=== PATIENT | female | born 1955 | race Caucasian/White ===

== ENCOUNTER 2017-12-02 13:05 | Outpatient (CLI) | payer BC, OTHER ==
--- NOTE | 2017-12-03 17:53 | MRI Report ---
Procedure Date: 12/02/2017 Accession Number: [id number] / [id number] Procedure: MRI - Knee LT W/O CPT Code: FULL RESULT: EXAM: LEFT KNEE MRI WITHOUT CONTRAST EXAM DATE: 12/02/2017 02:39 PM. CLINICAL HISTORY: Pain in left knee. COMPARISON: None. TECHNIQUE: Multiplanar, multisequence T1-weighted and fluid-sensitive sequences of the knee without contrast. Other: None. FINDINGS: Bones: 2.4 x 1.3 x 0.6 cm crescentic region of sclerosis at the anterior to central weight-bearing surface medial femoral condyle. Subtle flattening at the lateral aspect of the articular surface of this site. Small underlying cystic changes and moderate bone marrow edema. No fluid-filled cleft or free osteochondral fragment. Mild reactive edema posterior aspect medial tibial plateau and anteromedial aspect lateral tibial plateau adjacent to the tibial spines. Minimal reactive edema at the patella. Mild lateral patellar subluxation. Articular Cartilage: Diffuse deep-partial to full-thickness cartilage loss medial femoral condyle. Diffuse deep partial-thickness loss medial tibial plateau. Diffuse shallow partial-thickness loss lateral compartment. Moderate to large region of deep partial to full-thickness loss and fissuring/tearing medial patellar facet extending over the median ridge. Small focus deep-partial thickness loss medial trochlea. Medial Meniscus: Obliquely oriented radial tear extends through the substance of the posterior horn. The tear extends into the posterior root. Lateral Meniscus: Degenerative fraying at the free edges anterior and posterior horns. Cruciate Ligaments: Diffuse distortion anterior cruciate ligament. A few fibers may remain intact. Posterior cruciate ligament mildly thickened. Collateral Ligaments: The medial collateral and lateral collateral ligamentous structures are intact. Tendons: The quadriceps, patellar, semimembranosus, and popliteus tendons are unremarkable. Musculature: Mild fatty atrophy in the semimembranosus muscle. Mild to moderate fatty atrophy in the lateral head gastrocnemius muscle. Minimal edema in the vastus lateralis muscle. Other: Large joint effusion with synovitis. Moderate popliteal cyst with leak. No loose bodies. The medial and lateral retinacula are intact. Moderate subcutaneous edema anteriorly. Mild reactive edema in the anterior fat pads. IMPRESSION: 1. Subchondral fracture and osteochondral lesion medial femoral condyle with moderate bone marrow edema. No fluid-filled cleft or free ossific fragment. 2. Obliquely oriented radial tear posterior horn and root medial meniscus. 3. Degenerative fraying lateral meniscus. 4. High-grade partial versus complete disruption of the anterior cruciate ligament. 5. Mild thickening posterior cruciate ligament. 6. Large joint effusion with synovitis. 7. Moderate popliteal cyst with leak. 8. Tricompartmental cartilage loss, full-thickness/grade 4 at the medial femoral condyle and medial patella. RADIA MUSCULOSKELETAL RADIOLOGY SECTION
== END 2017-12-02 13:06 | disposition home or self-care (01) ==
LOC: DI 13:05
PROVIDERS: ATTEND Internal Medicine
DX: S72.432A Displaced fracture of medial condyle of left femur, initial encounter for closed fracture (principal); S83.242A Other tear of medial meniscus, current injury, left knee, initial encounter; M23.301 Other meniscus derangements, unspecified lateral meniscus, left knee; S83.512A Sprain of anterior cruciate ligament of left knee, initial encounter; M25.462 Effusion, left knee; M65.862 Other synovitis and tenosynovitis, left lower leg; M71.22 Synovial cyst of popliteal space [Baker], left knee; M23.92 Unspecified internal derangement of left knee

== ENCOUNTER 2019-05-03 09:11 | Outpatient (CLI) | payer BC, OTHER ==
--- NOTE | 2019-05-06 15:01 | Mammography Report ---
Reason: ROUTINE MAMMO Procedure Date: 05/03/2019 Accession Number: [id number] / [id number] Procedure: MGN - Screening Mammo Dig Bilat CPT Code: Final Report FULL RESULT: EXAM: Screening Mammo Dig Bilat with Reginald DATE: 05/03/2019 9:51 AM CLINICAL HISTORY: The patient is an asymptomatic 39-year-old female. Maternal history of breast cancer. Prior benign right breast needle biopsy. TECHNIQUE: (B) - Bilateral CC and MLO views were obtained. COMPARISON: 05/02/2017, 01/26/2016, 05/19/2014 and 05/17/2013 PARENCHYMAL PATTERN: (A) - The breasts demonstrate scattered fibroglandular densities bilaterally. FINDINGS: A microclip is in place in the right breast (site of benign needle biopsy). There are no developing suspicious masses, calcifications, or areas of distortion. IMPRESSION: Benign findings. BI-RADS category 2. RECOMMENDATION: (ANNUAL) - Recommend routine annual screening mammography. BI-RADS CATEGORY: (2) - Benign Findings. STANDARD QUALIFYING STATEMENTS: 1. This examination was not reviewed with the aid of Computer-Aided Detection (CAD). 2. A negative or benign imaging report should not preclude biopsy if clinically suspicious findings are present. 3. Dense breasts may obscure an underlying neoplasm. 4. This examination was reviewed with the aid of 3D breast imaging (tomosynthesis).
== END 2019-05-03 09:12 | disposition home or self-care (01) ==
LOC: DI.N 09:11
PROVIDERS: ATTEND Registered Nurse
DX: Z12.31 Encounter for screening mammogram for malignant neoplasm of breast (principal); Z80.3 Family history of malignant neoplasm of breast
CPT/HCPCS: 77067

== ENCOUNTER 2022-03-24 07:20 | Outpatient (CLI) | payer OTHER, MEDICARE ==
[2022-03-24 11:51] LABS: BASOPHILS # (AUTO) 0.1 10^3/uL (0.0-0.1); BASOPHILS % (AUTO) 0.7 %; EOSINOPHILS # (AUTO) 0.2 10^3/uL (0.0-0.7); EOSINOPHILS % (AUTO) 2.5 %; HCT - HEMATOCRIT 44.6 % (37.0-47.0); HGB - HEMOGLOBIN 14.8 g/dL (12.0-16.0); LYMPHOCYTES # (AUTO) 2.1 10^3/uL (1.5-3.5); LYMPHOCYTES % (AUTO) 25.1 %; MEAN CORPUSCULAR HEMOGLOBIN 29.2 pg (27.0-31.0); MEAN CORPUSCULAR HGB CONC 33.2 g/dL (32.0-36.0); MEAN CORPUSCULAR VOLUME 88.1 fL (81.0-99.0); MEAN PLATELET VOLUME 10.6 fL (7.9-10.8); MONOCYTES # (AUTO) 0.6 10^3/uL (0.0-1.0); MONOCYTES % (AUTO) 7.2 %; NEUTROPHILS # (AUTO) 5.4 10^3/uL (1.5-6.6); PLT - PLATELET COUNT 298 10^3/uL (130-450); RED BLOOD COUNT 5.06 10^6/uL (4.20-5.40); RED CELL DISTRIBUTION WIDTH 13.7 % (12.0-15.0); WHITE BLOOD COUNT 8.4 x10^3/uL (4.8-10.8)
[2022-03-24 13:10] LABS: ALBUMIN 4.2 g/dL (3.2-5.5); ALBUMIN/GLOBULIN RATIO 1.4 (1.0-2.2); ALKALINE PHOSPHATASE 114 IU/L (42-121); ALT ALANINE AMINOTRANSFERASE 30 IU/L (10-60); AST ASPARTATE AMINOTRANSFERASE 23 IU/L (10-42); BILIRUBIN,TOTAL 0.8 mg/dL (0.2-1.0); BUN - BLOOD UREA NITROGEN 15 mg/dL (6-20); CALCIUM 9.8 mg/dL (8.5-10.3); CARBON DIOXIDE - CO2 26 mmol/L (21-32); CHLORIDE 105 mmol/L (101-111); CHOL/HDL RATIO 3.7 (<4.4); CHOLESTEROL 191 mg/dL; CREATININE 0.6 mg/dL (0.4-1.0); GFR - MDRD 100 (>89); GLUCOSE 133 mg/dL (70-100); HDL CHOLESTEROL 52 mg/dL; LDL CHOLESTEROL,CALCULATED 102 mg/dL; POTASSIUM 4.5 mmol/L (3.5-5.0); SODIUM 139 mmol/L (135-145); TOTAL PROTEIN 7.2 g/dL (6.7-8.2); TRIGLYCERIDES 186 mg/dL; VLDL CHOLESTEROL 37 mg/dL
[2022-03-24 13:12] LABS: THYROID STIMULATING HORMONE 1.37 uIU/mL (0.34-5.60)
== END 2022-03-24 07:21 | disposition home or self-care (01) ==
LOC: LAB.N 07:20
PROVIDERS: ATTEND Registered Nurse
DX: Z79.899 Other long term (current) drug therapy (principal); Z13.220 Encounter for screening for lipoid disorders; Z13.29 Encounter for screening for other suspected endocrine disorder
CPT/HCPCS: 36415; 80053; 80061; 83721; 84443; 85025

== ENCOUNTER 2022-07-14 07:07 | Outpatient (CLI) | payer OTHER, MEDICARE ==
[2022-07-14 12:12] LABS: CALCIUM 9.6 mg/dL (8.5-10.3); CREATININE 0.6 mg/dL (0.4-1.0); POTASSIUM 4.4 mmol/L (3.5-5.0)
[2022-07-14 12:53] LABS: ESTIMATED AVERAGE GLUCOSE 128 mg/dL (70-100); HEMOGLOBIN A1c% 6.1 % (4.27-6.07)
[2022-07-14 18:14] LABS: CREATININE,URINE 69.8 mg/dL; MICROALBUM/CREATININE RATIO,UR 14.3 ug/mg (<30.0)
== END 2022-07-14 07:08 | disposition home or self-care (01) ==
LOC: LAB.N 07:07
PROVIDERS: ATTEND Registered Nurse
DX: R73.01 Impaired fasting glucose (principal)
CPT/HCPCS: 36415; 80048; 82043; 82570; 83036

== ENCOUNTER 2022-07-14 14:20 | Outpatient (CLI) | payer OTHER, MEDICARE | END 2022-07-14 14:21 | disposition home or self-care (01) | LOC: SC 14:20 | PROVIDERS: ATTEND Nurse Practitioner Family | DX: G47.33 Obstructive sleep apnea (adult) (pediatric) (principal); R09.02 Hypoxemia; E66.9 Obesity, unspecified; Z68.33 Body mass index [BMI] 33.0-33.9, adult; R73.01 Impaired fasting glucose | CPT/HCPCS: 36415; 80048; 82043; 82570; 83036; 95806 ==

== ENCOUNTER 2022-08-03 08:37 | Outpatient (CLI) | payer OTHER, MEDICARE ==
--- NOTE | 2022-08-03 12:27 | Mammography Report ---
BILATERAL DIGITAL SCREENING MAMMOGRAM 3D/2D: 08/03/2022 CLINICAL: Routine screening. Comparison is made to exam dated: 05/03/2019 mammogram - [facility]. Both breasts are heterogeneously dense, which may obscure small masses (category c / 51-75% glandular tissue). No significant masses, calcifications, or other findings are seen in either breast. There has been no significant interval change. IMPRESSION: NEGATIVE There is no mammographic evidence of malignancy. A 1 year screening mammogram is recommended. Based on the Tyrer Cuzick model (a risk assessment model) the patients lifetime risk is 6.9% and her 10 year risk is 3.6%. According to the ACR, ACS, and NCCN guidelines, an annual breast MRI exam saul g with mammogram is recommended if the patients lifetime risk is 20% or greater. This exam was interpreted at Station ID: [id number]. NOTE: For mammograms, a report in lay terms will be sent to the patient. Approximately 15% of breast malignancies will not be visualized mammographically. In the management of a palpable breast mass, a negative mammogram must not discourage biopsy of a clinically suspicious lesion. Electronically Signed By: Humberto raza/eileen:08/03/2022 10:02:29 letter sent: No_Letter ACR BI-RADS Category 1: Negative 3341F PARENCHYMAL PATTERN: (D) - The breast(s) demonstrate(s) heterogeneously dense fibroglandular bernice treadwell. BI-RADS CATEGORY: (1) - 1 Mammogram [id number] 1 year screening LATERALITY: (B)
== END 2022-08-03 08:38 | disposition home or self-care (01) ==
LOC: DI.N 08:37
PROVIDERS: ATTEND Registered Nurse
DX: Z12.31 Encounter for screening mammogram for malignant neoplasm of breast (principal)

== ENCOUNTER 2022-08-26 08:22 | Outpatient (CLI) | payer OTHER, MEDICARE ==
[2022-08-26 08:48] VITALS: BP 142/98
--- NOTE | 2022-08-26 08:48 | SLEEP CARE CONSULTATION ---
Information from patient questionnaire entered by Rochelle Camacho. I have reviewed and concur with the information entered by Rochelle Camacho. This document represents the service I personally performed and the decisions made by , Laya Freeman ARNP. History of Present Illness Service Date and Time: 08/26/2022821 Initial [place] Sleepiness Scale score: 6 (05/14/22) Current [place] Sleepiness Scale score: 5 (08/26/22) Additional HPI information: IVET WHITAKER returns for follow up and results of the recently performed home sleep study. I explained the pathophysiology behind obstructive sleep apnea. We then spent quite a bit of time discussing different treatment options. For mild obstructive sleep apnea, surgery and oral appliance are alternatives to nasal CPAP therapy but in moderate or severe cases, nasal CPAP is the most effective and reliable treatment. Because apnea is primarily in supine position, then positional management therapy could be effective. Methods discussed such as positioning with pillows to prevent supine sleep. I reviewed the impact of weight changes on sleep apnea and strongly recommended losing weight. Patient counseled not drink alcohol less than 4 hours before bedtime as it can increase snoring and apnea. Patient was cautioned about risks of drowsy driving until sleepiness symptoms resolve. Sleep Study - Results Type of Sleep Study: Home sleep study (COMPLETED 07/14/22) Prior sleep studies: No Polysomnography/Home Sleep Study results: Physician Impression: The quality of the study is good. The length of the study is adequate (> 240 minutes). Please also see the tabulated and graphic data. 1. Obstructive Sleep Apnea-Hypopnea (ICD-10 G47.33), moderate, with an AHI of 19.6/hr and kari SaO2 of 72%. During the study, the patient had 82 apneas (82 obstructive, 0 central, 0 mixed) and 65 hypopneas. The longest episode lasted 159.5 seconds. The respiratory events occurred almost exclusively during supine sleep (supine AHI was 25.1 and non-supine, 1.69). 2. Hypoxemia (ICD-10 R09.02), moderate, with the lowest oxygen saturation of 72 % and 22.0 minutes with SaO2 under 90%. Baseline oxygen saturation was normal (Average oxygen saturation was 93%). Allergies and Home Medications Known drug allergies: No Drug allergies reviewed: Yes Home medication list reviewed: Yes (no changes) Allergy and home medication list: Allergies No Known Drug Allergies Allergy (Verified 08/25/22 13:07) Review of Systems Review of systems same as previous: Yes (no changes) Physical Exam Vital signs obtained and entered by: ROCHELLE Chin MA Blood Pressure: 142/98 (LEFT ARM) Cuff size: long Heart Rate: 76 O2 Saturation: 96 Height: 5 ft 7.5 in Weight: 219 lb Body Mass Index: 33.7 BMI Classification: Obese Impression and Plan 1. Obstructive Sleep Apnea-Hypopnea Syndrome, moderate, with lowest oxygen saturation of 72%. Positive pressure therapy could benefit asthma. Since patients apnea is primarily in supine position, patient advised to try positional therapy and agreed with plan. She is also advised to lose weight as this will reduce snoring and apnea. Follow up is scheduled for one month to check effectiveness and to see if additional treatment indicated. 2. Hypoxemia, moderate, with the lowest oxygen saturation of 72 % and 22.0 minutes with SaO2 under 90%. Her baseline oxygen saturation was normal with an average oxygen saturation of 93%. * Positional therapy * Attempt to lose weight. * Avoid alcohol consumption near bedtime. * Avoid supine sleep * The patient is again cautioned about driving until sleepiness completely resolves. * Return in 1-2 months. I will assess response to therapy at that time. Counseling Topics: Sleeping position, Weight loss health impact Visit Type: In Office Time Spent with Patient (minutes): 21 Provider Statement: I spent 100% of the Face to Face Visit with the patient with greater than 50% spent counseling the patient and coordination of care.
== END 2022-08-26 08:23 | disposition home or self-care (01) ==
LOC: SC 08:22
PROVIDERS: ATTEND Nurse Practitioner Family
DX: G47.33 Obstructive sleep apnea (adult) (pediatric) (principal); R09.02 Hypoxemia; E66.9 Obesity, unspecified; Z68.33 Body mass index [BMI] 33.0-33.9, adult
CPT/HCPCS: 99212; 99213

== ENCOUNTER 2023-06-02 07:43 | Outpatient (CLI) | payer OTHER, MEDICARE ==
[2023-06-02 11:54] LABS: BASOPHILS # (AUTO) 0.1 10^3/uL (0.0-0.1); BASOPHILS % (AUTO) 0.6 %; EOSINOPHILS # (AUTO) 0.1 10^3/uL (0.0-0.7); EOSINOPHILS % (AUTO) 1.6 %; HCT - HEMATOCRIT 45.1 % (37.0-47.0); LYMPHOCYTES # (AUTO) 1.7 10^3/uL (1.5-3.5); LYMPHOCYTES % (AUTO) 19.5 %; MEAN CORPUSCULAR HEMOGLOBIN 28.6 pg (27.0-31.0); MEAN CORPUSCULAR HGB CONC 33.3 g/dL (32.0-36.0); MEAN CORPUSCULAR VOLUME 85.9 fL (81.0-99.0); MEAN PLATELET VOLUME 10.7 fL (7.9-10.8); MONOCYTES # (AUTO) 0.6 10^3/uL (0.0-1.0); MONOCYTES % (AUTO) 6.9 %; NEUTROPHILS # (AUTO) 6.3 10^3/uL (1.5-6.6); NEUTROPHILS % (AUTO) 70.9 %; PLT - PLATELET COUNT 333 10^3/uL (130-450); RED BLOOD COUNT 5.25 10^6/uL (4.20-5.40); RED CELL DISTRIBUTION WIDTH 13.9 % (12.0-15.0); WHITE BLOOD COUNT 8.8 x10^3/uL (4.8-10.8)
[2023-06-02 12:14] LABS: ALBUMIN 4.2 g/dL (3.2-5.5); ALBUMIN/GLOBULIN RATIO 1.4 (1.0-2.2); ALKALINE PHOSPHATASE 121 IU/L (42-121); ALT ALANINE AMINOTRANSFERASE 18 IU/L (10-60); AST ASPARTATE AMINOTRANSFERASE 14 IU/L (10-42); BILIRUBIN,TOTAL 0.7 mg/dL (0.2-1.0); BUN - BLOOD UREA NITROGEN 13 mg/dL (6-20); CALCIUM 9.6 mg/dL (8.5-10.3); CARBON DIOXIDE - CO2 26 mmol/L (21-32); CHLORIDE 103 mmol/L (101-111); CHOL/HDL RATIO 3.8 (<4.4); CHOLESTEROL 187 mg/dL; CREATININE 0.6 mg/dL (0.6-1.3); GFR - MDRD 99 (>89); GLUCOSE 149 mg/dL (74-104); HDL CHOLESTEROL 49 mg/dL; LDL CHOLESTEROL,CALCULATED 91 mg/dL; LDL/HDL RATIO 1.9 (<4.4); POTASSIUM 4.4 mmol/L (3.5-4.5); SODIUM 136 mmol/L (135-145); TOTAL PROTEIN 7.2 g/dL (6.4-8.9); TRIGLYCERIDES 233 mg/dL (48-352); VLDL CHOLESTEROL 47 mg/dL
[2023-06-02 12:16] LABS: ESTIMATED AVERAGE GLUCOSE 134 mg/dL (70-100); HEMOGLOBIN A1c% 6.3 % (4.27-6.07)
== END 2023-06-02 07:44 | disposition home or self-care (01) ==
LOC: LAB.N 07:43
PROVIDERS: ATTEND Registered Nurse
DX: R73.01 Impaired fasting glucose (principal); Z13.220 Encounter for screening for lipoid disorders; Z79.899 Other long term (current) drug therapy
CPT/HCPCS: 36415; 80053; 80061; 83036; 83721; 85025

== ENCOUNTER 2023-09-18 07:06 | Outpatient (CLI) | payer OTHER, MEDICARE ==
[2023-09-18 12:34] LABS: CREATININE,URINE 37.2 mg/dL; MICROALBUM/CREATININE RATIO,UR 18.8 ug/mg (<30.0); MICROALBUMIN,URINE 0.7 mg/dL
[2023-09-18 12:37] LABS: CALCIUM 9.8 mg/dL (8.5-10.3); CREATININE 0.6 mg/dL (0.6-1.3); POTASSIUM 4.2 mmol/L (3.5-4.5)
[2023-09-18 12:56] LABS: ESTIMATED AVERAGE GLUCOSE 140 mg/dL (70-100); HEMOGLOBIN A1c% 6.5 % (4.27-6.07)
== END 2023-09-18 07:07 | disposition home or self-care (01) ==
LOC: LAB.N 07:06
PROVIDERS: ATTEND Registered Nurse
DX: E11.9 Type 2 diabetes mellitus without complications (principal)
CPT/HCPCS: 36415; 80048; 82043; 82570; 83036

== ENCOUNTER 2024-01-01 07:09 | Outpatient (CLI) | payer OTHER, MEDICARE ==
[2024-01-01 13:05] LABS: CALCIUM 9.5 mg/dL (8.5-10.3); CREATININE 0.7 mg/dL (0.6-1.3); POTASSIUM 4.4 mmol/L (3.5-4.5)
[2024-01-01 15:12] LABS: ESTIMATED AVERAGE GLUCOSE 126 mg/dL (70-100)
== END 2024-01-01 07:10 | disposition home or self-care (01) ==
LOC: LAB.N 07:09
PROVIDERS: ATTEND Registered Nurse
DX: R73.01 Impaired fasting glucose (principal)
CPT/HCPCS: 36415; 80048; 83036